=== PATIENT | female | born 1970 | race Hispanic/Latino ===

== ENCOUNTER 2021-06-16 19:15 | Emergency (ER) | payer SELFPAY ==
[~2021-06-16] VITALS: Ht 157.5 cm; Wt 68.9 kg
[2021-06-16 19:18] VITALS: BP 126/73
== END 2021-06-16 23:55 | disposition left against medical advice (07) ==
LOC: EDH 19:15
DX: R51.9 Headache, unspecified (principal); R11.0 Nausea; Z53.21 Procedure and treatment not carried out due to patient leaving prior to being seen by health care provider